=== PATIENT | female | born 1980 | race African-American/Black ===

== ENCOUNTER 2018-01-06 16:25 | Emergency (ER) | payer SELFPAY ==
[~2018-01-06] VITALS: Ht 167.6 cm; Wt 56.7 kg
[2018-01-06 18:20] VITALS: BP 187/102
[2018-01-06] MEDS ORDERED: NEOMY/BACITR/POLYMYXIN OINT PACKET. TP ONE (18:45)
[2018-01-06] MEDS ORDERED: LIDOCAINE 2%/EPI 1:100,000 20 ML VIAL. IJ ONE (18:45)
[2018-01-06] MEDS ORDERED: ACETAMINOPHEN 500 MG TABLET PO ONE (19:00)
--- NOTE | 2018-01-06 19:00 | PHYS DOC ---
Past Medical History Past Medical History: Bipolar, Hypertension Additional Past Medical Histor: Restless leg syndrome Past Surgical History: No Surgical History Smoking: Cigarettes, Less than 1pk/day Alcohol Use: None Drug Use: None Adult General Chief Complaint Chief Complaint: LACERATION/AVULSION HPI HPI Patient is a 37 year old female who presents to the ED with a laceration on the lateral aspect of her left index finger. She states she was cutting vegetables for dinner with a vegetable knife when she accidentally slashed her finger around 1pm today. She did not come in until later because she did not have a ride to the ED. She notes a throbbing pain which she rates as a 10/10. The pain does not radiate anywhere else. She states immediately after she cut herself, she washed her finger with water, wrapped it with a paper towel, and put ice on it. She took 2 ibuprofen and took a nap. When she woke up, the pain was worse. She states she is unsure if there is any change in sensation in her finger and notes that she has had trouble moving her finger. She denies any fevers or chills. Review of Systems Review of Systems Constitutional: Denies fever or chills Eyes: Denies change in visual acuity, redness, or eye pain HENT: Denies nasal congestion or sore throat Respiratory: Denies cough or shortness of breath Cardiovascular: Denies chest pain or palpitations GI: Denies abdominal pain, nausea, vomiting, or diarrhea : Denies dysuria or hematuria Musculoskeletal: Denies back pain or joint pain Integument: Notes laceration on lateral aspect of left index finger; Denies rash Neurologic: Denies headache, focal weakness or sensory changes Complete systems were reviewed and found to be within normal limits, except as documented in this note. Family History Family History Noncontributory Current Medications Current Medications Current Medications Medications (Trade) Dose Ordered Sig/Cherrie Start Time Stop Time Status Last Admin Dose Admin Acetaminophen (Tylenol) 500 mg 1X ONCE 01/06/18 19:00 01/06/18 19:01 DC Lidocaine/ Epinephrine (LIDOCAINE 2%-EPI 1:100,000 multi-dose) 20 ml 1X ONCE 01/06/18 18:45 01/06/18 18:46 DC 01/06/18 19:13 20 ML Neomycin/ Polymyxin/ Bacitracin (Triple Antibiotic Ointment) 1 pkt 1X ONCE 01/06/18 18:45 01/06/18 18:46 DC Allergies Allergies Allergies Coded Allergies Type Severity Reaction Last Updated Verified Penicillins Allergy Intermediate AMOXICILLIN TOLERATED 10/10/13 Yes Physical Exam Physical Exam Constitutional: Well developed, well nourished HENT: Normocephalic, atraumatic, oropharynx moist Eyes: Conjunctiva normal, no discharge Neck: Normal range of motion, no tenderness, supple Cardiovascular: Heart rate regular rhythm, no murmur Lungs & Thorax: Bilateral breath sounds clear to auscultation Abdomen: Soft, no tenderness Skin: Warm, dry, no edema Back: No tenderness, no CVA tenderness Extremities: No tenderness, ROM intact, 1.5 inch laceration on lateral aspect of left index finger Neurologic: Alert and oriented X 3, normal motor function, normal sensory function, no focal deficits noted Psychologic: Affect normal, judgement normal, mood normal Current Patient Data Vital Signs Vital Signs Date Time Temp Pulse Resp B/P (MAP) Pulse Ox O2 Delivery O2 Flow Rate FiO2 01/06/18 18:20 97.7 69 18 187/102 (130) 100 Room Air 97.7 EKG EKG [] Radiology/Procedures Radiology/Procedures [] Course & Med Decision Making Course & Med Decision Making Pertinent Labs and Imaging studies reviewed. (See chart for details) Patient is a 37 year old female who presents to the ED with a laceration on the lateral aspect of her left index finger. She had taken 2 ibuprofen about 4 hours ago. The laceration was evaluated, cleaned, irrigated, repaired and dressed.. She was given a dose of Tylenol for pain. Patient stable for discharge with outpatient follow-up with PCP. Discussed findings and plan with patient, who acknowledges understanding and agreement. Dragon Disclaimer Dragon Disclaimer This electronic medical record was generated, in whole or in part, using a voice recognition dictation system. Departure Departure Impression: Primary Impression: Laceration Disposition: 01 HOME, SELF-CARE Condition: STABLE Referrals: NO PCP (PCP) Patient Instructions: Fingertip Laceration, Laceration Care, Adult, Easy-to- Read Additional Instructions: Do not soak your wound. You may shower. Clean wound daily with soap and water. Change dressing 2 times daily. Use over the counter antibiotic ointment with each dressing change. Sutures need to be removed in 7-10 days. Present to your family doctor or local urgent care for removal. You may also present to the ED but it will be an additional visit/charge. After suture removal you may use Vitamin E ointment to soften the wound and prevent scarring. Splinting Splinting : Location: left index finger Pre-Made Type: metal Splint: volar Pre-Proc Neuro Vasc Exam: normal Post-Proc Neuro Vasc Exam: normal Laceration/Wound Repair Laceration/Wound Repair : Wound Location: upper extremity (left index finger) Wound's Depth, Shape: superficial Wound Explored: contaminated Betadine Prep?: Yes Anesthesia: Lidocaine w/ Epi (2%) Wound Debrided: moderate Wound Repaired With: sutures Suture Size/Type: 4:0, nylon Number of Sutures: 6 Layer Closure?: No Sterile Dressing Applied?: Yes Splint Applied?: Yes Type of Splint Applied: metal Sling Applied?: No Progress Patient tolerated well and without difficulty. RAFAT PARNELL DO Jan 06, 2018 19:00
== END 2018-01-06 20:24 | disposition home or self-care (01) ==
LOC: ER 16:25
DX: S61.211A Laceration without foreign body of left index finger without damage to nail, initial encounter (principal); Z88.0 Allergy status to penicillin; F17.210 Nicotine dependence, cigarettes, uncomplicated; W26.0XXA Contact with knife, initial encounter; Y93.G3 Activity, cooking and baking; Y92.89 Other specified places as the place of occurrence of the external cause; Y99.8 Other external cause status
CPT/HCPCS: 12001; 99283; J3490